=== PATIENT | female | born 1995 | race Asian ===

== ENCOUNTER → 2018-04-23 17:04 | Outpatient (CLI) | payer OTHER, SELFPAY ==
[2018-04-23 18:17] LABS: HCG Quantitative /Beta subunit 1097.7 mIU/mL
== END ==
PROVIDERS: Visit Provider Obstetrics & Gynecology
DX: O20.9 Hemorrhage in early pregnancy, unspecified (principal)
CPT/HCPCS: 36415; 84702

== ENCOUNTER 2019-01-27 15:49 | Emergency (ER) | payer OTHER, SELFPAY ==
[2019-01-27 16:06] VITALS: BP 123/78; PULSE 55; RESP 20; TEMP 36.7; O2SAT 99; BMI 25.7
[2019-01-27 16:50] VITALS: BP 102/53; PULSE 51; RESP 14; O2SAT 100
--- NOTE | 2019-01-27 17:05 | ED.CHESTPAIN ---
HPI - Chest Pain <VICTORINO Rodrigez - Last Filed: 01/27/19 19:53> General Chief Complaint: Chest Pain Stated Complaint: 10 weeks preg sharp chest pains Time Seen by Provider: 01/27/19 16:45 Source: patient Mode of arrival: ambulatory Limitations: no limitations History of Present Illness HPI narrative: The patient is a 10-week female who presents with chief complaint of chest pain. She states she only has a shooting chest pain upon every 10 breaths or so. It is not consistent. No associating factors of swelling of the extremities, headache, nausea vomiting or diarrhea. She states she has been nauseous throughout her and this is not changed. She states she has been shortness breath for the past few weeks, and her physician's office states that it is normal. she denies any cough fever. She denies any vaginal bleeding. She denies any vaginal discharge. She denies any abdominal pain. She denies any dysuria urgency or frequency. Related Data Previous Rx's Medication Instructions Recorded metronidazole 500 mg OR BID #14 cap 12/06/17 Allergies Allergy/AdvReac Type Severity Reaction Status Date / Time No Known Allergies Allergy Uncoded 01/24/18 12:13 Review of Systems <VICTORINO Rodrigez - Last Filed: 01/27/19 19:53> Review of Systems GENERAL: Denies chills, fatigue, malaise, fever, sweats. HEENT: Denies sinus pain, ear pain, sore throat, difficulty swallowing, dizziness. RESPIRATORY: Denies dyspnea, cough, wheezing, hemoptysis, sputum. CARDIOVASCULAR: See HPI GASTROINTESTINAL: Denies nausea, vomiting, abdominal pain, diarrhea, constipation, melena. : Denies dysuria, frequency, incontinence, hematuria, urinary retention. MUSCULOSKELETAL: denies weakness, joint pain, or bony pain SKIN: Denies rash, skin lesions, or other NEUROLOGIC: Denies weakness, headache, numbness, change in speech, confusion, seizures, incoordination. PSYCHIATRIC: No concerning psychosocial issues. 12 point review of systems is negative except for those stated above PFSH <VICTORINO Rodrigez - Last Filed: 01/27/19 19:53> Social History Smoking Status: Former smoker Social History Smoking Status: Former smoker Exam <VICTORINO Rodrigez - Last Filed: 01/27/19 19:53> Narrative Exam Narrative: GENERAL: This is a well-nourished, well-developed patient, no acute distress HEAD: Atraumatic. Normocephalic. No temporal or scalp tenderness. EYES: Pupils equal round and reactive. Extraocular motions intact. No scleral icterus. No injection or drainage. ENT: Nose without bleeding, purulent drainage or septal hematoma. Throat without erythema, tonsillar hypertrophy or exudate. Uvula midline. Airway patent. NECK: Trachea midline. No JVD or lymphadenopathy. Supple, nontender, no meningeal signs. CARDIOVASCULAR: Regular rate and rhythm without murmurs, gallops, or rubs. RESPIRATORY: Clear to auscultation. Breath sounds equal bilaterally. No wheezes, rales, or rhonchi. No coughing. No pain on anterior posterior chest wall compression. No pain on costochondral joint from compression no pain on lateral chest wall compression. GASTROINTESTINAL: Abdomen soft, non-tender, nondistended. No hepato-splenomegaly, or palpable masses. No guarding. active bowel sounds. EXTREMITIES: No clubbing, cyanosis, or edema. No joint tenderness, effusion, or edema noted. BACK: Nontender without deformity or crepitance. No flank tenderness. NEURO: AOx3. SKIN: No rash or erythema. Initial Vital Signs Initial Vital Signs: Vital Signs Temperature 98.0 F 01/27/19 16:06 Pulse Rate 55 L 01/27/19 16:06 Respiratory Rate 20 01/27/19 16:06 Blood Pressure 123/78 01/27/19 16:06 Pulse Oximetry 99 01/27/19 16:06 <Lisa Powers MD - Last Filed: 01/29/19 14:19> Initial Vital Signs Initial Vital Signs: Vital Signs Temperature 98.0 F 01/27/19 16:06 Pulse Rate 55 L 01/27/19 16:06 Respiratory Rate 20 01/27/19 16:06 Blood Pressure 123/78 01/27/19 16:06 Pulse Oximetry 99 01/27/19 16:06 Course <VADIM Rodrigez-YENI - Last Filed: 01/27/19 19:53> Orders Ordered: ED Orders 01/27/19 16:05 EKG-12 Lead Stat 01/27/19 17:15 Urinalysis and Microscopic Stat 01/27/19 17:20 Complete Blood Count AUTO DIFF Stat Comprehensive Metabolic Panel Stat HCG Quantitative Stat Magnesium Stat Phosphorous Stat Vital Signs - 8 hr 01/27/19 16:06 01/27/19 16:50 01/27/19 17:45 Temperature 98.0 F Pulse Rate 55 L 51 L 64 Respiratory Rate 20 14 19 Blood Pressure 123/78 Blood Pressure [Right Arm] 102/53 L 103/62 Pulse Oximetry 99 100 100 <Lisa Powers MD - Last Filed: 01/29/19 14:19> Orders Ordered: ED Orders 01/27/19 16:05 EKG-12 Lead Stat 01/27/19 17:15 Urinalysis and Microscopic Stat 01/27/19 17:20 Complete Blood Count AUTO DIFF Stat Comprehensive Metabolic Panel Stat HCG Quantitative Stat Magnesium Stat Phosphorous Stat Vital Signs - 8 hr 01/27/19 16:06 01/27/19 16:50 01/27/19 17:45 Temperature 98.0 F Pulse Rate 55 L 51 L 64 Respiratory Rate 20 14 19 Blood Pressure 123/78 Blood Pressure [Right Arm] 102/53 L 103/62 Pulse Oximetry 99 100 100 MDM - Chest Pain <VADIM Rodrigez- - Last Filed: 01/27/19 19:53> Lab Data Result diagrams: 01/27/19 17:20 01/27/19 17:20 Lab Results 01/27/19 01/27/19 01/27/19 Range/Units 17:15 17:20 17:20 WBC 7.9 (4.5-11.0) X10^3/uL RBC 4.02 (4.0-5.2) X10^6/uL Hgb 13.0 (12.0-16.0) g/dL Hct 38.1 (36-46) % MCV 94.8 (80-100) fL MCH 32.3 (26-34) PG MCHC 34.1 (30-36) % RDW 13.2 (11.6-14.8) % Plt Count 236 (150-400) X10^3/uL Neut % (Auto) 64.5 (50-75) % Lymph % (Auto) 27.0 (25-40) % [place] % (Auto) 6.7 (3-14) % Eos % (Auto) 1.4 L (2-4) % Baso % (Auto) 0.4 (0-2) % Neut # (Auto) 5100 (2090-7825) /uL Lymph # (Auto) 2100 (8542-5001) /uL [place] # (Auto) 500 (0-900) /uL Eos # (Auto) 100 (0-450) /uL Baso # (Auto) 0 (0-100) /uL Sodium 135 L (137-145) mmol/L Potassium 3.9 (3.4-5.1) mmol/L Chloride 102 (98-107) mmol/L Carbon Dioxide 23 (22-32) mmol/L BUN 13 (7-17) mg/dL Creatinine 0.50 L (0.52-1.04) mg/dL Estimated GFR > 60.0 (>60) mL/min BUN/Creatinine Ratio 26.0 H (6-22) Glucose 80 (70-100) mg/dL Calcium 9.1 (8.4-10.2) mg/dL Phosphorus 4.2 (2.5-4.5) mg/dL Magnesium 2.0 (1.6-2.3) mg/dL Total Bilirubin 0.1 L (0.2-1.3) mg/dL AST 14 (14-36) IU/L ALT 20 (9-52) IU/L Alkaline Phosphatase 46 (38-126) U/L Total Protein 7.1 (6.3-8.2) g/dL Albumin 4.1 (3.5-5.0) g/dL Globulin 3.0 (1.7-4.1) g/dL Albumin/Globulin Ratio 1.4 (1.0-2.8) HCG, Quant [id number] mIU/mL Urine Color Yellow Urine Appearance Clear Urine pH 6.5 (4.5-8.0) Ur Specific [place] 1.020 (1.000-1.035) Urine Protein Negative (Negative) Urine Glucose (UA) Negative (Negative) g/dL Urine Ketones Negative (NEGATIVE) Urine Occult Blood Negative (Negative) Urine Nitrate Negative (Negative) Urine Bilirubin Negative (NEGATIVE) Urine Urobilinogen 0.2 (0.2) E.U./dL Ur Leukocyte Esterase Negative (NEGATIVE) Urine RBC None seen (0-5/HPF) Urine WBC 0-1/hpf (0-5/HPF) Ur Squamous Epith Cells 1-5 /hpf (0-5/HPF) Urine Bacteria Few (2-10) H (None) Ur Culture Indicated? Cult not indicated MDM Narrative Medical decision making narrative: The patient is a 10 week female presents with a chief complaint of transient chest pain. she is not tachycardic, oxygenating well. Her heart tones by Doppler were 170s. The patient declined any imaging, and initially declined any blood work. Given that she is hemodynamically stable, okay with this. I did offer her medication including Tylenol and GI medication which she declined. She later agreed to checking electrolytes mode but left prior to lab work resulting. I encouraged her to follow up with her primary care provider. She stated she was sick of waiting and wanted to leave. Patient walked out of the department without discharge instructions against medical advice. <Lisa Powers MD - Last Filed: 01/29/19 14:19> Lab Data Lab Results 01/27/19 01/27/19 01/27/19 Range/Units 17:15 17:20 17:20 WBC 7.9 (4.5-11.0) X10^3/uL RBC 4.02 (4.0-5.2) X10^6/uL Hgb 13.0 (12.0-16.0) g/dL Hct 38.1 (36-46) % MCV 94.8 (80-100) fL MCH 32.3 (26-34) PG MCHC 34.1 (30-36) % RDW 13.2 (11.6-14.8) % Plt Count 236 (150-400) X10^3/uL Neut % (Auto) 64.5 (50-75) % Lymph % (Auto) 27.0 (25-40) % [place] % (Auto) 6.7 (3-14) % Eos % (Auto) 1.4 L (2-4) % Baso % (Auto) 0.4 (0-2) % Neut # (Auto) 5100 (3218-6836) /uL Lymph # (Auto) 2100 (8691-4761) /uL [place] # (Auto) 500 (0-900) /uL Eos # (Auto) 100 (0-450) /uL Baso # (Auto) 0 (0-100) /uL Sodium 135 L (137-145) mmol/L Potassium 3.9 (3.4-5.1) mmol/L Chloride 102 (98-107) mmol/L Carbon Dioxide 23 (22-32) mmol/L BUN 13 (7-17) mg/dL Creatinine 0.50 L (0.52-1.04) mg/dL Estimated GFR > 60.0 (>60) mL/min BUN/Creatinine Ratio 26.0 H (6-22) Glucose 80 (70-100) mg/dL Calcium 9.1 (8.4-10.2) mg/dL Phosphorus 4.2 (2.5-4.5) mg/dL Magnesium 2.0 (1.6-2.3) mg/dL Total Bilirubin 0.1 L (0.2-1.3) mg/dL AST 14 (14-36) IU/L ALT 20 (9-52) IU/L Alkaline Phosphatase 46 (38-126) U/L Total Protein 7.1 (6.3-8.2) g/dL Albumin 4.1 (3.5-5.0) g/dL Globulin 3.0 (1.7-4.1) g/dL Albumin/Globulin Ratio 1.4 (1.0-2.8) HCG, Quant 391257 mIU/mL Urine Color Yellow Urine Appearance Clear Urine pH 6.5 (4.5-8.0) Ur Specific [place] 1.020 (1.000-1.035) Urine Protein Negative (Negative) Urine Glucose (UA) Negative (Negative) g/dL Urine Ketones Negative (NEGATIVE) Urine Occult Blood Negative (Negative) Urine Nitrate Negative (Negative) Urine Bilirubin Negative (NEGATIVE) Urine Urobilinogen 0.2 (0.2) E.U./dL Ur Leukocyte Esterase Negative (NEGATIVE) Urine RBC None seen (0-5/HPF) Urine WBC 0-1/hpf (0-5/HPF) Ur Squamous Epith Cells 1-5 /hpf (0-5/HPF) Urine Bacteria Few (2-10) H (None) Ur Culture Indicated? Cult not indicated Discharge Plan Departure Patient Disposition: Left Against Medical Advice Clinical Impression: Left against medical advice Discharge Date/Time: 01/27/19 18:35 Interventions: ED Discharge Assessment Last Done: 01/27/19 19:00 Prescriptions: No Action metronidazole 500 MG tablet 500 mg OR BID Qty: 14 RF: 0 Stand Alone Forms: Against Medical Advice
[2019-01-27 17:30] LABS: Add Manual Diff / Slide Review NO; Basophils Absolute Auto 0 /uL (0-100); Basophils Percent Auto 0.4 % (0-2); Eosinophils Absolute Auto 100 /uL (0-450); Eosinophils Percent Auto 1.4 % (2-4); Hematocrit 38.1 % (36-46); Lymphocytes Absolute Auto 2100 /uL (1100-4500); Mean Corpuscular HGB Conc 34.1 % (30-36); Mean Corpuscular Hemoglobin 32.3 PG (26-34); Mean Corpuscular Volume 94.8 fL (80-100); Monocytes Absolute Auto 500 /uL (0-900); Monocytes Percent Auto 6.7 % (3-14); Neutrophils Absolute Auto 5100 /uL (1500-7000); Neutrophils Percent Auto 64.5 % (50-75); Platelet Count 236 X10^3/uL (150-400); Red Blood Cell Count 4.02 X10^6/uL (4.0-5.2); Red Cell Distribution Width 13.2 % (11.6-14.8); White Blood Cell Count 7.9 X10^3/uL (4.5-11.0)
[2019-01-27 17:45] VITALS: BP 103/62; PULSE 64; RESP 19; O2SAT 100
[2019-01-27 17:47] LABS: Alanine Aminotransferase 20 IU/L (9-52); Albumin 4.1 g/dL (3.5-5.0); Albumin Globulin Ratio 1.4 (1.0-2.8); Alkaline Phosphatase 46 U/L (38-126); Aspartate Aminotransferase 14 IU/L (14-36); Bilirubin Total 0.1 mg/dL (0.2-1.3); Blood Urea Nitrogen 13 mg/dL (7-17); Calcium 9.1 mg/dL (8.4-10.2); Carbon Dioxide 23 mmol/L (22-32); Chloride 102 mmol/L (98-107); Estimated Glomerular Filt Rate > 60.0 mL/min (>60); Glucose 80 mg/dL (70-100); HEMOLYSIS < 15 (0-50); Phosphorous 4.2 mg/dL (2.5-4.5); Potassium 3.9 mmol/L (3.4-5.1); Sodium 135 mmol/L (137-145); Total Protein 7.1 g/dL (6.3-8.2)
[2019-01-27 18:04] LABS: RBC Urine None Seen (0-5/HPF)
[2019-01-27 18:06] LABS: Appearance Urine UA CLEAR; Bilirubin Urine UA NEGATIVE (NEGATIVE); Color Urine UA YELLOW; Glucose Urine UA NEGATIVE (Negative); Ketones Urine UA NEGATIVE (NEGATIVE); Leukocyte Esterase Urine UA NEGATIVE (NEGATIVE); Nitrite Urine UA NEGATIVE (Negative); Occult Blood Urine UA NEGATIVE (Negative); Protein Urine UA NEGATIVE (Negative); Urobilinogen Urine UA 0.2 E.U./dL (0.2); pH Urine UA 6.5 (4.5-8.0)
[2019-01-27 18:12] LABS: Bacteria Urine Few (2-10); Culture Indicated Urine Cult Not Indicated; Squamous Epithelial Cell Urine 1-5 /HPF (0-5/HPF); WBC Urine 0-1/HPF (0-5/HPF)
[2019-01-27 18:29] LABS: HCG Quantitative /Beta subunit 227940 mIU/mL
--- NOTE | 2019-01-27 19:16 | ED_ITS ---
HPI - Chest Pain <VICTORINO Rodrigez - Last Filed: 01/27/19 19:53> General Chief Complaint: Chest Pain Stated Complaint: 10 weeks preg sharp chest pains Time Seen by Provider: 01/27/19 16:45 Source: patient Mode of arrival: ambulatory Limitations: no limitations History of Present Illness HPI narrative: The patient is a 10-week female who presents with chief complaint of chest pain. She states she only has a shooting chest pain upon every 10 breaths or so. It is not consistent. No associating factors of swelling of the extremities, headache, nausea vomiting or diarrhea. She states she has been nauseous throughout her and this is not changed. She states she has been shortness breath for the past few weeks, and her physician's office states that it is normal. she denies any cough fever. She denies any vaginal bleeding. She denies any vaginal discharge. She denies any abdominal pain. She denies any dysuria urgency or frequency. Related Data Previous Rx's Medication Instructions Recorded metronidazole 500 mg OR BID #14 cap 12/06/17 Allergies Allergy/AdvReac Type Severity Reaction Status Date / Time No Known Allergies Allergy Uncoded 01/24/18 12:13 Review of Systems <LOUIS Rodrigez - Last Filed: 01/27/19 19:53> Review of Systems GENERAL: Denies chills, fatigue, malaise, fever, sweats. HEENT: Denies sinus pain, ear pain, sore throat, difficulty swallowing, dizziness. RESPIRATORY: Denies dyspnea, cough, wheezing, hemoptysis, sputum. CARDIOVASCULAR: See HPI GASTROINTESTINAL: Denies nausea, vomiting, abdominal pain, diarrhea, constipati on, melena. : Denies dysuria, frequency, incontinence, hematuria, urinary retention. MUSCULOSKELETAL: denies weakness, joint pain, or bony pain SKIN: Denies rash, skin lesions, or other NEUROLOGIC: Denies weakness, headache, numbness, change in speech, confusion, seizures, incoordination. PSYCHIATRIC: No concerning psychosocial issues. 12 point review of systems is negative except for those stated above PFSH <VICTORINO Rodrigez - Last Filed: 01/27/19 19:53> Social History Smoking Status: Former smoker Social History Smoking Status: Former smoker Exam <LOUIS Rodrigez - Last Filed: 01/27/19 19:53> Narrative Exam Narrative: GENERAL: This is a well-nourished, well-developed patient, no acute distress HEAD: Atraumatic. Normocephalic. No temporal or scalp tenderness. EYES: Pupils equal round and reactive. Extraocular motions intact. No scleral icterus. No injection or drainage. ENT: Nose without bleeding, purulent drainage or septal hematoma. Throat without erythema, tonsillar hypertrophy or exudate. Uvula midline. Airway patent. NECK: Trachea midline. No JVD or lymphadenopathy. Supple, nontender, no meningeal signs. CARDIOVASCULAR: Regular rate and rhythm without murmurs, gallops, or rubs. RESPIRATORY: Clear to auscultation. Breath sounds equal bilaterally. No wheezes, rales, or rhonchi. No coughing. No pain on anterior posterior chest wall compression. No pain on costochondral joint from compression no pain on lateral chest wall compression. GASTROINTESTINAL: Abdomen soft, non-tender, nondistended. No hepato- splenomegaly, or palpable masses. No guarding. active bowel sounds. EXTREMITIES: No clubbing, cyanosis, or edema. No joint tenderness, effusion, or edema noted. BACK: Nontender without deformity or crepitance. No flank tenderness. NEURO: AOx3. SKIN: No rash or erythema. Initial Vital Signs Initial Vital Signs: Vital Signs Temperature 98.0 F 01/27/19 16:06 Pulse Rate 55 L 01/27/19 16:06 Respiratory Rate 20 01/27/19 16:06 Blood Pressure 123/78 01/27/19 16:06 Pulse Oximetry 99 01/27/19 16:06 <Lisa Powers MD - Last Filed: 01/29/19 14:19> Initial Vital Signs Initial Vital Signs: Vital Signs Temperature 98.0 F 01/27/19 16:06 Pulse Rate 55 L 01/27/19 16:06 Respiratory Rate 20 01/27/19 16:06 Blood Pressure 123/78 01/27/19 16:06 Pulse Oximetry 99 01/27/19 16:06 Course <VADIM Rodrigez-BC - Last Filed: 01/27/19 19:53> Orders Ordered: ED Orders 01/27/19 16:05 EKG-12 Lead Stat 01/27/19 17:15 Urinalysis and Microscopic Stat 01/27/19 17:20 Complete Blood Count AUTO DIFF Stat Comprehensive Metabolic Panel Stat HCG Quantitative Stat Magnesium Stat Phosphorous Stat Vital Signs - 8 hr 01/27/19 16:06 01/27/19 16:50 01/27/19 17:45 Temperature 98.0 F Pulse Rate 55 L 51 L 64 Respiratory Rate 20 14 19 Blood Pressure 123/78 Blood Pressure [Right Arm] 102/53 L 103/62 Pulse Oximetry 99 100 100 <Lisa Powers MD - Last Filed: 01/29/19 14:19> Orders Ordered: ED Orders 01/27/19 16:05 EKG-12 Lead Stat 01/27/19 17:15 Urinalysis and Microscopic Stat 01/27/19 17:20 Complete Blood Count AUTO DIFF Stat Comprehensive Metabolic Panel Stat HCG Quantitative Stat Magnesium Stat Phosphorous Stat Vital Signs - 8 hr 01/27/19 16:06 01/27/19 16:50 01/27/19 17:45 Temperature 98.0 F Pulse Rate 55 L 51 L 64 Respiratory Rate 20 14 19 Blood Pressure 123/78 Blood Pressure [Right Arm] 102/53 L 103/62 Pulse Oximetry 99 100 100 MDM - Chest Pain <VADIM Rodrigez- - Last Filed: 01/27/19 19:53> Lab Data Result diagrams: 01/27/19 17:20 01/27/19 17:20 Lab Results 01/27/19 01/27/19 01/27/19 Range/Units 17:15 17:20 17:20 WBC 7.9 (4.5-11.0) X10^3/uL RBC 4.02 (4.0-5.2) X10^6/uL Hgb 13.0 (12.0-16.0) g/dL Hct 38.1 (36-46) % MCV 94.8 (80-100) fL MCH 32.3 (26-34) PG MCHC 34.1 (30-36) % RDW 13.2 (11.6-14.8) % Plt Count 236 (150-400) X10^3/uL Neut % (Auto) 64.5 (50-75) % Lymph % (Auto) 27.0 (25-40) % [place] % (Auto) 6.7 (3-14) % Eos % (Auto) 1.4 L (2-4) % Baso % (Auto) 0.4 (0-2) % Neut # (Auto) 5100 (7299-2323) /uL Lymph # (Auto) 2100 (8498-2178) /uL [place] # (Auto) 500 (0-900) /uL Eos # (Auto) 100 (0-450) /uL Baso # (Auto) 0 (0-100) /uL Sodium 135 L (137-145) mmol/L Potassium 3.9 (3.4-5.1) mmol/L Chloride 102 (98-107) mmol/L Carbon Dioxide 23 (22-32) mmol/L BUN 13 (7-17) mg/dL Creatinine 0.50 L (0.52-1.04) mg/dL Estimated GFR > 60.0 (>60) mL/min BUN/Creatinine Ratio 26.0 H (6-22) Glucose 80 (70-100) mg/dL Calcium 9.1 (8.4-10.2) mg/dL Phosphorus 4.2 (2.5-4.5) mg/dL Magnesium 2.0 (1.6-2.3) mg/dL Total Bilirubin 0.1 L (0.2-1.3) mg/dL AST 14 (14-36) IU/L ALT 20 (9-52) IU/L Alkaline Phosphatase 46 (38-126) U/L Total Protein 7.1 (6.3-8.2) g/dL Albumin 4.1 (3.5-5.0) g/dL Globulin 3.0 (1.7-4.1) g/dL Albumin/Globulin Ratio 1.4 (1.0-2.8) HCG, Quant 271157 mIU/mL Urine Color Yellow Urine Appearance Clear Urine pH 6.5 (4.5-8.0) Ur Specific [place] 1.020 (1.000-1.035) Urine Protein Negative (Negative) Urine Glucose (UA) Negative (Negative) g/dL Urine Ketones Negative (NEGATIVE) Urine Occult Blood Negative (Negative) Urine Nitrate Negative (Negative) Urine Bilirubin Negative (NEGATIVE) Urine Urobilinogen 0.2 (0.2) E.U./dL Ur Leukocyte Esterase Negative (NEGATIVE) Urine RBC None seen (0-5/HPF) Urine WBC 0-1/hpf (0-5/HPF) Ur Squamous Epith Cells 1-5 /hpf (0-5/HPF) Urine Bacteria Few (2-10) H (None) Ur Culture Indicated? Cult not indicated MDM Narrative Medical decision making narrative: The patient is a 10 week female presents with a chief complaint of transient chest pain. she is not tachycardic, oxygenating well. Her heart tones by Doppler were 170s. The patient declined any imaging, and initially declined any blood work. Given that she is hemodynamically stable, okay with this. I did offer her medication including Tylenol and GI medication which she declined. She later agreed to ch ecking electrolytes mode but left prior to lab work resulting. I encouraged her to follow up with her primary care provider. She stated she was sick of waiting and wanted to leave. Patient walked out of the department without discharge instructions against medical advice. <Lisa Powers MD - Last Filed: 01/29/19 14:19> Lab Data Lab Results 01/27/19 01/27/19 01/27/19 Range/Units 17:15 17:20 17:20 WBC 7.9 (4.5-11.0) X10^3/uL RBC 4.02 (4.0-5.2) X10^6/uL Hgb 13.0 (12.0-16.0) g/dL Hct 38.1 (36-46) % MCV 94.8 (80-100) fL MCH 32.3 (26-34) PG MCHC 34.1 (30-36) % RDW 13.2 (11.6-14.8) % Plt Count 236 (150-400) X10^3/uL Neut % (Auto) 64.5 (50-75) % Lymph % (Auto) 27.0 (25-40) % [place] % (Auto) 6.7 (3-14) % Eos % (Auto) 1.4 L (2-4) % Baso % (Auto) 0.4 (0-2) % Neut # (Auto) 5100 (7084-5117) /uL Lymph # (Auto) 2100 (7085-8196) /uL [place] # (Auto) 500 (0-900) /uL Eos # (Auto) 100 (0-450) /uL Baso # (Auto) 0 (0-100) /uL Sodium 135 L (137-145) mmol/L Potassium 3.9 (3.4-5.1) mmol/L Chloride 102 (98-107) mmol/L Carbon Dioxide 23 (22-32) mmol/L BUN 13 (7-17) mg/dL Creatinine 0.50 L (0.52-1.04) mg/dL Estimated GFR > 60.0 (>60) mL/min BUN/Creatinine Ratio 26.0 H (6-22) Glucose 80 (70-100) mg/dL Calcium 9.1 (8.4-10.2) mg/dL Phosphorus 4.2 (2.5-4.5) mg/dL Magnesium 2.0 (1.6-2.3) mg/dL Total Bilirubin 0.1 L (0.2-1.3) mg/dL AST 14 (14-36) IU/L ALT 20 (9-52) IU/L Alkaline Phosphatase 46 (38-126) U/L Total Protein 7.1 (6.3-8.2) g/dL Albumin 4.1 (3.5-5.0) g/dL Globulin 3.0 (1.7-4.1) g/dL Albumin/Globulin Ratio 1.4 (1.0-2.8) HCG, Quant 851266 mIU/mL Urine Color Yellow Urine Appearance Clear Urine pH 6.5 (4.5-8.0) Ur Specific [place] 1.020 (1.000-1.035) Urine Protein Negative (Negative) Urine Glucose (UA) Negative (Negative) g/dL Urine Ketones Negative (NEGATIVE) Urine Occult Blood Negative (Negative) Urine Nitrate Negative (Negative) Urine Bilirubin Negative (NEGATIVE) Urine Urobilinogen 0.2 (0.2) E.U./dL Ur Leukocyte Esterase Negative (NEGATIVE) Urine RBC None seen (0-5/HPF) Urine WBC 0-1/hpf (0-5/HPF) Ur Squamous Epith Cells 1-5 /hpf (0-5/HPF) Urine Bacteria Few (2-10) H (None) Ur Culture Indicated? Cult not indicated Discharge Plan Departure Patient Disposition: Left Against Medical Advice Clinical Impression: Left against medical advice Discharge Date/Time: 01/27/19 18:35 Interventions: ED Discharge Assessment Last Done: 01/27/19 19:00 Prescriptions: No Action metronidazole 500 MG tablet 500 mg OR BID Qty: 14 RF: 0 Stand Alone Forms: Against Medical Advice
== END 2019-01-27 18:35 | disposition left against medical advice (07) ==
PROVIDERS: Emergency Provider Nurse Practitioner Family
DX: R07.89 Other chest pain (principal); R06.02 Shortness of breath; Z33.1 Pregnant state, incidental; Z53.29 Procedure and treatment not carried out because of patient's decision for other reasons
CPT/HCPCS: 36415; 80053; 81001; 83735; 84100; 84702; 85025; 93005; 93010; 99282; 99284

== ENCOUNTER → 2019-05-11 11:07 | Outpatient (CLI) | payer OTHER, SELFPAY ==
[2019-05-11 12:43] LABS: Hematocrit 35.2 % (36-46); Hemoglobin 12.4 g/dL (12.0-16.0)
[2019-05-11 12:52] LABS: GTT (PREG) 1 Hour PP 50gm Dose 109 mg/dL (76-139)
== END ==
PROVIDERS: Visit Provider Obstetrics & Gynecology
DX: Z34.02 Encounter for supervision of normal first pregnancy, second trimester (principal)
CPT/HCPCS: 36415; 82950; 85014; 85018

== ENCOUNTER → 2020-04-20 12:32 | Outpatient (CLI) | payer OTHER, SELFPAY ==
--- NOTE | 2020-04-20 12:34 | DI.US.S_ITS ---
PROCEDURE: US PELVIC COMPLETE INDICATIONS: PAIN, DUB Additional history: 8 months . TECHNIQUE: Real-time scanning was performed of the pelvic organs, with image documentation. Additional endovaginal scanning was necessary due to incomplete visualization of the adnexal and endometrial structures by transabdominal scanning. COMPARISON: [facility], , PELVIC COMPLETE, 02/23/2017, 7:19. FINDINGS: Transabdominal scanning: Limited scanning through the kidneys shows no hydronephrosis. No pathologic free abdominal or pelvic fluid. Endovaginal scanning: Uterus: Uterus is normal in size at 6.3 x 3.6 x 4.8 cm. The endometrium measures 5.1 mm in combined thickness. Ovaries: Ovaries normal bilaterally measuring 2.4 x 1.5 x 1.4 cm on the right and 2.7 x 1.7 x 2.9 cm on the left. Mild amount of hemorrhagic free fluid within the cul-de-sac. IMPRESSION: 1. Normal sonographic appearance of the uterus and endometrium. 2. Ovaries are normal. 3. A small volume (28 cc) in the pelvic cul-de-sac possibly containing debris. Dictated by: Jesse Johnson [facility] Interpreted: Nigel Polo MD on 04/20/2020 at 14:45 Approved by: Nigel Polo M.D. on 04/20/2020 at 15:19
== END ==
PROVIDERS: PCP Nurse Practitioner Family; Referring Provider Obstetrics & Gynecology; Visit Provider Obstetrics & Gynecology
DX: N93.9 Abnormal uterine and vaginal bleeding, unspecified (principal); R10.2 Pelvic and perineal pain
CPT/HCPCS: 76830; 76856

== ENCOUNTER → 2021-03-29 10:11 | Outpatient (CLI) | payer OTHER, SELFPAY ==
--- NOTE | 2021-03-29 10:49 | DI.US.S_ITS ---
At the request of: SVEN BRITTON Procedure: US breast LT limited LIMITED ULTRASOUND OF LEFT BREAST AND AXILLA: 03/29/2021 CLINICAL: Patient returns today to evaluate a focal asymmetry in the left breast. Comparison is made to exam dated: 11/06/2020 ultrasound - [facility] [place]. Color flow and real-time ultrasound of the left breast axilla were performed. Monte scale images of the real-time examination were reviewed. There is a stable 1 cm x 0.9 cm x 0.5 cm oval mass with a circumscribed and microlobulated margin in the left breast at 7 o'clock anterior depth 2 cm from the nipple. This oval mass is hypoechoic with a welldefined boundary and no posterior acoustic shadowing or enhancement. This correlates as palpated. Color flow imaging demonstrates that there is vascularity present. There also is a 3.2 cm x 0.9 cm oval enlarged lymph node with uniform cortical thickening measuring 0.6 cm with a circumscribed margin in the left axilla. This oval enlarged lymph node displays fatty hilum and no posterior acoustic shadowing or enhancement. This correlates as an incidental finding. Color flow imaging demonstrates that there is vascularity present. IMPRESSION: PROBABLY BENIGN 1) Stable 1 cm oval mass in the left breast at 7 o'clock anterior depth resembles a fibroadenoma and is probably benign. -A follow-up ultrasound in 6 months is recommended. 2) Enlarged left axillary lymph node with uniform cortical thickening is probably benign. Patient reports recent Covid-19 vaccination which could result in reactive adenopathy. -Clinical surveillance is recommended. -A follow-up ultrasound in 6 months is recommended. Exam findings were conveyed to the patient. Patient is advised to monitor for significant change. Clinical follow-up is recommended. This exam was interpreted at Station ID: [id number]. Electronically Signed By: Nigel Polo M.D. [facility]/:03/29/2021 12:45:35 letter sent: Followup Recommended Ultrasound BI-RADS: 3 Probably benign
[2021-03-29 12:34] LABS: HCG Quantitative /Beta subunit < 2.4 mIU/mL
== END ==
PROVIDERS: PCP Physician Assistant; Referring Provider Obstetrics & Gynecology; Visit Provider Obstetrics & Gynecology
DX: N63.24 Unspecified lump in the left breast, lower inner quadrant (principal); R59.0 Localized enlarged lymph nodes; O02.0 Blighted ovum and nonhydatidiform mole; Z79.899 Other long term (current) drug therapy
CPT/HCPCS: 36415; 76642; 84702

== ENCOUNTER 2021-06-20 14:52 | Emergency (ER) | payer OTHER, SELFPAY ==
[2021-06-20 14:55] VITALS: BP 113/68; PULSE 81; RESP 16; TEMP 37.1; O2SAT 99
[2021-06-20 15:27] LABS: Add Manual Diff / Slide Review NO; Basophils Absolute Auto 0 /uL (0-100); Basophils Percent Auto 0.7 % (0-2); Eosinophils Absolute Auto 0 /uL (0-450); Eosinophils Percent Auto 0.4 % (2-4); Hematocrit 39.9 % (36-46); Hemoglobin 13.8 g/dL (12.0-16.0); Lymphocytes Absolute Auto 1600 /uL (1100-4500); Lymphocytes Percent Auto 32.9 % (25-40); Mean Corpuscular HGB Conc 34.6 % (30-36); Mean Corpuscular Hemoglobin 31.7 PG (26-34); Mean Corpuscular Volume 91.6 fL (80-100); Monocytes Absolute Auto 400 /uL (0-900); Monocytes Percent Auto 7.6 % (3-14); Neutrophils Absolute Auto 2800 /uL (1500-7000); Neutrophils Percent Auto 58.4 % (50-75); Platelet Count 230 X10^3/uL (150-400); Red Blood Cell Count 4.35 X10^6/uL (4.0-5.2); Red Cell Distribution Width 13.6 % (11.6-14.8); White Blood Cell Count 4.7 X10^3/uL (4.5-11.0)
[2021-06-20 15:44] LABS: Alanine Aminotransferase 15 IU/L (<35); Albumin 4.5 g/dL (3.5-5.0); Albumin Globulin Ratio 1.4 (1.0-2.8); Alkaline Phosphatase 49 U/L (38-126); Aspartate Aminotransferase 29 IU/L (14-36); BUN Creatinine Ratio 12.3 (6-22); Bilirubin Total 0.5 mg/dL (0.2-1.3); Blood Urea Nitrogen 7 mg/dL (7-17); Calcium 9.2 mg/dL (8.4-10.2); Carbon Dioxide 24 mmol/L (22-32); Chloride 105 mmol/L (98-107); Estimated Glomerular Filt Rate > 60.0 mL/min (>60); Globulin 3.2 g/dL (1.7-4.1); Glucose 86 mg/dL (70-100); HEMOLYSIS 25 (0-50); Lipase 34 U/L (23-300); Sodium 137 mmol/L (137-145); Total Protein 7.7 g/dL (6.3-8.2)
--- NOTE | 2021-06-20 17:07 | DI.US.S_ITS ---
PROCEDURE: US ABDOMEN LIMITED INDICATIONS: RIGHT UPPER QUADRANT PAIN TECHNIQUE: Real-time focused scanning was performed of the abdomen, with image documentation. COMPARISON: None. FINDINGS: The liver is normal in size and demonstrates no focal lesions. No findings of gallstones or sludge are seen. The gallbladder wall is not thickened, measuring 3 mm or less. No specific pericholecystic fluid is seen. The sonographic Espinosa sign is negative. There is no biliary dilatation, the common bile duct measures 3 mm. No significant pancreatic abnormality is seen on these images. IMPRESSION: The gallbladder demonstrates a normal sonographic appearance. No biliary dilatation is seen. Dictated by: Hadley Gifford M.D. on 06/20/2021 at 16:54 Approved by: Hadley Gifford M.D. on 06/20/2021 at 16:54
--- NOTE | 2021-06-20 18:09 | ED_ITS ---
HPI - Abdominal Pain General Chief Complaint: Abdominal Pain Stated Complaint: Rt Sided Cramping,Bloating,Hard to Eat Time Seen by Provider: 06/20/21 18:06 Source: patient Mode of arrival: Ambulatory Limitations: no limitations History of Present Illness HPI narrative: This is a 25-year-old female who comes to the emergency department with complaint of right upper quadrant discomfort. Patient describes that every time she eats she feels a kylah sensation. Patient states not so much painful as uncomfortable. She denies any fevers or chills. She has had nausea. She states occasional vomiting but does not seem to be correlated. She has not had any diarrhea, no black or bloody stools. She denies any radiation of her pain. She has had symptoms for about 2 weeks. She has not had similar symptoms in past. She denies any dysuria, urgency or frequency. She denies flank pain. She denies any new vaginal bleeding or discharge. She denies daily medications. She denies prior surgeries. She denies allergies to medications. No tobacco, alcohol or illicit. She has taken omeprazole in the past but does not take it regularly. Related Data Previous Rx's Medication Instructions Recorded levonorgestrel 0.15 mg-ethinyl 1 tab PO DAILY #91 ea 03/16/21 estradiol 30 mcg tablets,3 mos pack(91) Allergies Allergy/AdvReac Type Severity Reaction Status Date / Time No Known Allergies Allergy Uncoded 03/16/21 15:28 Review of Systems Review of Systems ROS Unobtainable: All systems reviewed & are unremarkable except as noted in HPI and below Patient History Social History Smoking Status: Never smoker Smoking Status: Never smoker alcohol intake frequency: 0-2 drinks per day Substance Use Type: does not use Exam Narrative Exam Narrative: GENERAL: Alert and oriented x three, female in mild distress. HEENT: Head normocephalic, atraumatic, EOMI, pupils reactive, face symmetric, moist mucous membranes NECK: Supple, full range of motion CARDIOVASCULAR: Regular rate and rhythm without murmurs, rubs or gallops. RESPIRATORY: Breath sounds equal bilaterally, no wheezes rales or rhonchi. ABDOMEN: Soft, nontender. Normoactive bowel sounds all 4 quadrants. No guarding or rebound, rigidity, no mass. Nondistended. : No CVA tenderness EXTREMITIES: Normal range of motion, no clubbing or edema. Neurovascularly intact NEUROLOGICAL: Cranial nerves II through XII grossly intact. Moving all extremities SKIN: Warm, dry, no petechiae, no rashes or lesions. Initial Vital Signs Initial Vital Signs: Vital Signs Temperature 98.8 F 06/20/21 14:55 Pulse Rate 81 06/20/21 14:55 Respiratory Rate 16 06/20/21 14:55 Blood Pressure 113/68 06/20/21 14:55 Pulse Oximetry 99 06/20/21 14:55 Course Orders Ordered: ED Orders 06/20/21 15:10 Complete Blood Count AUTO DIFF Stat Comprehensive Metabolic Panel Stat Lipase Stat 06/20/21 17:07 US abdomen limited Stat Vital Signs Vital signs: Vital Signs - 8 hr 06/20/21 14:55 Temperature 98.8 F Pulse Rate 81 Respiratory Rate 16 Blood Pressure 113/68 Pulse Oximetry 99 MDM - Abdominal Pain Lab Data Result diagrams: 06/20/21 15:10 06/20/21 15:10 Labs: Lab Results 06/20/21 06/20/21 Range/Units 15:10 15:10 WBC 4.7 (4.5-11.0) X10^3/uL RBC 4.35 (4.0-5.2) X10^6/uL Hgb 13.8 (12.0-16.0) g/dL Hct 39.9 (36-46) % MCV 91.6 (80-100) fL MCH 31.7 (26-34) PG MCHC 34.6 (30-36) % RDW 13.6 (11.6-14.8) % Plt Count 230 (150-400) X10^3/uL Neut % (Auto) 58.4 (50-75) % Lymph % (Auto) 32.9 (25-40) % Mccormick % (Auto) 7.6 (3-14) % Eos % (Auto) 0.4 L (2-4) % Baso % (Auto) 0.7 (0-2) % Neut # (Auto) 2800 (1692-3383) /uL Lymph # (Auto) 1600 (6485-7811) /uL Mccormick # (Auto) 400 (0-900) /uL Eos # (Auto) 0 (0-450) /uL Baso # (Auto) 0 (0-100) /uL Sodium 137 (137-145) mmol/L Potassium 4.0 (3.4-5.1) mmol/L Chloride 105 (98-107) mmol/L Carbon Dioxide 24 (22-32) mmol/L BUN 7 (7-17) mg/dL Creatinine 0.57 (0.52-1.04) mg/dL Estimated GFR > 60.0 (>60) mL/min BUN/Creatinine Ratio 12.3 (6-22) Glucose 86 (70-100) mg/dL Calcium 9.2 (8.4-10.2) mg/dL Total Bilirubin 0.5 (0.2-1.3) mg/dL AST 29 (14-36) IU/L ALT 15 (<35) IU/L Alkaline Phosphatase 49 (38-126) U/L Total Protein 7.7 (6.3-8.2) g/dL Albumin 4.5 (3.5-5.0) g/dL Globulin 3.2 (1.7-4.1) g/dL Albumin/Globulin Ratio 1.4 (1.0-2.8) Lipase 34 (23-300) U/L Point of care testing: Point of Care Testing Test Results Negative Urine Dip Bedside Urine Glucose Negative Bedside Urine Bilirubin - Negative Bedside Urine Ketone - Negative Urine Specific [place] 1.005 Bedside Urine Occult Blood - Negative Bedside Urine pH 6.5 Bedside Urine Protein - Negative Bedside Urine Urobilinogen - Negative Bedside Urine Nitrite - Negative Bedside Urine Leukocytes - Negative Esterase Imaging Data US - abdomen: Radiologist's Impression: [address] [address] Ultrasound Report Signed Patient: Jaclyn Haq MR#: [id number] : 1995 Acct:[id number] Age/Sex: 25 / F Date of Service: 06/20/21 Loc: ED Accession Number: [id number] ?? Procedure: US abdomen limited Ordering Provider: Rebekah Laird D.O. PROCEDURE: US ABDOMEN LIMITED ? INDICATIONS:? RIGHT UPPER QUADRANT PAIN ? TECHNIQUE:? Real-time focused scanning was performed of the abdomen, with image documentation.? ? COMPARISON:? None. ? FINDINGS:? The liver is normal in size and demonstrates no focal lesions. ? No findings of gallstones or sludge are seen.? The gallbladder wall is not thickened, measuring 3 mm or less.? No specific pericholecystic fluid is seen.? The sonographic Espinosa sign is negative. ? There is no biliary dilatation, the common bile duct measures 3 mm.? ? No significant pancreatic abnormality is seen on these images.? IMPRESSION:? The gallbladder demonstrates a normal sonographic appearance. No biliary dilatation is seen. ? ? Dictated by: Hadley Gifford M.D. on 06/20/2021 at 16:54 ? ? Approved by: Hadley Gifford M.D. on 06/20/2021 at 16:54?? MDM Narrative Medical decision making narrative: 25-year-old female comes in with complaint of gallbladder kylah like sensation for the last 2-3 weeks which curved every time with food but no difference in type of food. Patient has had some occasional nausea or vomiting but states that has not been correlated and the timing is different. She denies any other frequent symptoms. Ultrasound is negative. Lab work show no acute findings. Point of care urine and are negative. Discussed with patient HIDA scan may be appropriate for her. This time we discussed and CT imaging is deferred. We also discussed starting her on a PPI and possible EGD. Patient has a member of all home she states she can take. She deferred taking her discharge paperwork with her home. Discharge Plan Departure Patient Disposition: Home Clinical Impression: Abdominal pain Instructions: DI for Abdominal Pain-Adult Activity Restrictions/Additional Instructions: Follow-up with your physician in the next week for recheck. A discussion about HIDA scan and/or EGD for further evaluation. I recommend taking omeprazole 40 mg daily. Please return for fevers, new or worsening abdominal pain, persistent vomiting, black or bloody stools or other new or concerning symptoms. Prescriptions: No Action levonorgestrel-ethinyl estrad 0.15 mg-30 mcg (91) tablets,dose pack,3 month 1 tab PO DAILY Qty: 91 RF: 4 Referrals: Soila Ruby MD [Primary Care Provider] -
[2021-06-20 18:20] VITALS: BP 113/60; PULSE 80; RESP 18; O2SAT 99
== END 2021-06-20 18:20 | disposition home or self-care (01) ==
PROVIDERS: Emergency Medicine; Emergency Provider Emergency Medicine; PCP Student in an Organized Health Care Education/Training Program
DX: R10.11 Right upper quadrant pain (principal)
CPT/HCPCS: 76705; 80053; 81003; 81025; 83690; 85025; 99282; 99284

== ENCOUNTER → 2022-09-16 10:11 | Outpatient (CLI) | payer OTHER, SELFPAY ==
--- NOTE | 2022-09-16 10:13 | DI.US.S_ITS ---
LIMITED ULTRASOUND OF LEFT BREAST AND AXILLA: 09/16/2022 CLINICAL: Late 6 month follow-up of cyst/fibroadenoma. Comparison is made to exams dated: 03/29/2021 ultrasound - [facility] and 11/06/2020 ultrasound - [facility]. Color flow and real-time ultrasound of the left breast 7 o'clock, and axilla regions were performed. There is a 0.7 cm x 0.7 cm x 0.5 cm oval mass with a circumscribed and microlobulated margin in the left breast at 7 o'clock anterior depth 2 cm from the nipple. This oval mass is hypoechoic with a well-defined boundary. This abnormality is decreased in size and correlates as palpated. Color flow imaging demonstrates that there is adjacent vascularity. The 3.2 cm lymph node in the left axillary tail is no longer seen. No significant abnormalities were seen sonographically in the left axilla. IMPRESSION: PROBABLY BENIGN The 0.7 cm oval mass in the left breast at 7 o'clock anterior depth has decreased in size, most likely is a fibroadenoma and is probably benign. The previously prominent axillary lymph node is no longer present. A follow-up left ultrasound in 6 months is recommended to demonstrate stability of the 7:00 finding. Findings and recommendations were conveyed to the patient at time of exam. This exam was interpreted at Station ID: [id number]. Electronically Signed By: Holly grant/:09/16/2022 11:06:47 letter sent: Followup Recommended Ultrasound BI-RADS: 3 Probably benign
== END ==
PROVIDERS: PCP Student in an Organized Health Care Education/Training Program; Referring Provider Obstetrics & Gynecology; Visit Provider Obstetrics & Gynecology
DX: R92.8 Other abnormal and inconclusive findings on diagnostic imaging of breast (principal); N63.24 Unspecified lump in the left breast, lower inner quadrant
CPT/HCPCS: 76642